=== PATIENT | female | born 1935 | race Caucasian/White ===

== ENCOUNTER → 2017-02-23 | Outpatient (CLI) | payer MEDICARE ==
[~2017-02-23] MED LIST: BENA1TAB52 PO; SECRETIN 16 MCG ONE; VITAMIN B IM
== END | disposition home or self-care (01) ==
LOC: CFH 01-29 12:26 → RAD 10:42
PROVIDERS: ATTEND Internal Medicine Gastroenterology
DX: K86.2 Cyst of pancreas (principal); K76.89 Other specified diseases of liver; K44.9 Diaphragmatic hernia without obstruction or gangrene; K21.0 Gastro-esophageal reflux disease with esophagitis; K57.30 Diverticulosis of large intestine without perforation or abscess without bleeding; K59.00 Constipation, unspecified; E53.8 Deficiency of other specified B group vitamins; Z86.010 Personal history of colon polyps; Z78.0 Asymptomatic menopausal state
CPT/HCPCS: 74181; J2850

== ENCOUNTER 2018-01-07 05:46 | Inpatient (IN) | payer MEDICARE ==
[~2018-01-07] VITALS: Ht 167.6 cm; Wt 70.0 kg
[~2018-01-07 05:46] MED LIST changes: -SECRETIN 16 MCG ONE
[2018-01-07] MEDS ORDERED: LACTATED RINGERS 1,000 ML IV SCH (06:23)
[2018-01-07] MEDS ORDERED: THROMBIN 20,000 UNIT VIAL TP ONE (06:36)
[2018-01-07] MEDS ORDERED: BACITRACIN 50,000 UNIT ONE (06:36)
[2018-01-07] MEDS ORDERED: BUPIVACAINE/PF-EPI 0.5% 1:200K ONE (06:36)
[2018-01-07 06:45] VITALS: BP 154/92
[2018-01-07] MEDS ORDERED: GABAPENTIN 300 MG CAPSULE PO ONE (07:00)
[2018-01-07] MEDS ORDERED: ACETAMINOPHEN 500 MG TABLET PO ONE (07:00)
[2018-01-07] MEDS ORDERED: GABAPENTIN 300 MG CAPSULE ONE (07:02)
[2018-01-07] MEDS ORDERED: ACETAMINOPHEN 500 MG TABLET ONE (07:02)
[2018-01-07] MEDS ORDERED: FENTANYL PF 250 MCG/5ML ONE (07:13)
[2018-01-07] MEDS ORDERED: HYDROmorphone 1 MG/ML, 1ML IV PRN (08:30)
[2018-01-07] MEDS ORDERED: PROCHLORPERAZINE 5 MG/ML, 2ML IV PRN (08:30)
[2018-01-07] MEDS ORDERED: DIAZEPAM 5 MG/ML, 2ML IVPush PRN (08:30)
[2018-01-07] MEDS ORDERED: MEPERIDINE/PF 25MG/0.5ML IVPush PRN (08:30)
[2018-01-07] MEDS ORDERED: hydrALAzine 20 MG/ML, 1ML IV PRN (08:30)
[2018-01-07] MEDS ORDERED: DIPHENHYDRAMINE 50 MG/ML, 1ML IVPush PRN ×2 (08:30→13:00)
[2018-01-07] MEDS ORDERED: FENTANYL PF 100 MCG/2ML IV PRN (08:30)
[2018-01-07] MEDS ORDERED: LABETALOL 5MG/ML, 20ML IV PRN (08:30)
[2018-01-07] MEDS ORDERED: DEXAMETHASONE 4 MG/ML, 1ML ONE (08:40)
[2018-01-07] MEDS ORDERED: SUCCINYLCHOLINE 20 MG/ML, 10ML ONE (08:40)
[2018-01-07] MEDS ORDERED: NEOSTIGMINE 1 MG/ML, 10ML ONE (08:40)
[2018-01-07] MEDS ORDERED: GLYCOPYRROLATE 0.2MG/1ML, 5ML ONE (08:40)
[2018-01-07] MEDS ORDERED: PROPOFOL 10 MG/ML, 20ML ONE (08:40)
[2018-01-07] MEDS ORDERED: CEFAZOLIN 1,000 MG ONE (08:40)
[2018-01-07] MEDS ORDERED: ROCURONIUM 10MG/ML,5ML ONE (08:40)
[2018-01-07] MEDS ORDERED: ONDANSETRON 2MG/ML, 2ML ONE (08:40)
[2018-01-07] MEDS ORDERED: HYDROmorphone 2 MG/ML, 1ML IM PRN (13:00)
[2018-01-07] MEDS ORDERED: BISACODYL 10 MG SUPP PR PRN (13:00)
[2018-01-07] MEDS ORDERED: ONDANSETRON 2MG/ML, 2ML IV PRN (13:00)
[2018-01-07] MEDS ORDERED: DIPHENHYDRAMINE 50 MG CAPSULE PO PRN (13:00)
[2018-01-07] MEDS ORDERED: PROMETHAZINE 25 MG/ML, 1ML IM PRN (13:00)
[2018-01-07] MEDS ORDERED: DIPHENHYDRAMINE 50 MG/ML, 1ML IM PRN (13:00)
[2018-01-07] MEDS ORDERED: MAGNESIUM HYDROXIDE 8%, 30ML UDC PO PRN (13:00)
[2018-01-07] MEDS ORDERED: HYDROmorphone 2MG TABLET PO PRN (13:00)
[2018-01-07 13:08] VITALS: BP 119/59
[2018-01-07] MEDS: NS + 20MEQ KCL 1,000 ML IV SCH (13:29)
[2018-01-07] MEDS: CEFAZOLIN PMX 1GM/50ML 50 ML IVPB SCH ×2 (16:07→23:30)
[2018-01-07 19:01] VITALS: BP 136/62
[2018-01-07] MEDS ORDERED: ZOLPIDEM 5MG TABLET PO PRN (21:00)
[2018-01-07] MEDS: HYDROcodone/APAP 5/325 TABLET PO PRN (22:19)
[2018-01-08 00:26] VITALS: BP 129/69
[2018-01-08] MEDS: NS + 20MEQ KCL 1,000 ML IV SCH (01:30)
[2018-01-08] MEDS: HYDROcodone/APAP 5/325 TABLET PO PRN ×2 (03:03→08:21)
[2018-01-08 04:34] VITALS: BP 132/67
[2018-01-08 08:15] VITALS: BP 120/64
[2018-01-08] MEDS ORDERED: BENAZEPRIL 20 MG TABLET PO SCH (09:00)
[2018-01-08] MEDS ORDERED: HYDROCHLOROTHIAZIDE 12.5 MG CAPSULE PO SCH (09:00)
[2018-01-08] MEDS ORDERED: SENNA/DOCUSATE TABLET PO SCH (09:00)
[2018-01-08] MEDS ORDERED: HYDR-3240 PO (11:31)
[2018-01-08 11:50] VITALS: BP 119/64
== END 2018-01-08 12:10 | disposition home or self-care (01) | DRG 517 ==
LOC: OUT 05:46 → 4NOR 10:35 → OUT 10:40 → 4NOR 10:40 → DCLOUNGE 01-08 11:57
PROVIDERS: ADMIT Neurological Surgery; ATTEND Neurological Surgery
PROC: 01NB0ZZ Release Lumbar Nerve, Open Approach (ICD-10-PCS; principal; 2018-01-07 07:30)
DX: M48.07 Spinal stenosis, lumbosacral region (principal); M54.17 Radiculopathy, lumbosacral region; G83.9 Paralytic syndrome, unspecified; Z98.1 Arthrodesis status
CPT/HCPCS: G0378; J0690; J1100; J2405; J2704; J2710; J3010; J3480; J3490; J0330; J7120

== ENCOUNTER 2018-04-21 09:08 | Outpatient (CLI) | payer MEDICARE ==
[~2018-04-21 09:08] MED LIST changes: +HYDR-3240 PO
[2018-04-21] MEDS ORDERED: SECRETIN 16 MCG IV ONE (10:30)
== END 2018-04-21 23:59 | disposition home or self-care (01) ==
LOC: RAD 09:08
PROVIDERS: ATTEND Internal Medicine Gastroenterology
DX: Z02.9 Encounter for administrative examinations, unspecified (principal)